=== PATIENT | female | born 1970 | race Caucasian/White ===

== ENCOUNTER → 2023-12-02 07:17 | Outpatient (REF) | payer BC, SELFPAY ==
[2023-12-02 10:03] LABS: % Basophils 2.6 % (0-2); % Eosinophils 3.3 % (0-6); % Immature Granulocytes 0.2 % (0-0.5); % Lymphocytes 42.8 % (20.5-51.1); % Monocytes 9.9 % (1.7-9.3); % Neutrophils 41.2 % (42.2-75.2); Absolute Basophils 0.1 10^3/uL (0-0.2); Absolute Eosinophils 0.1 10^3/uL (0-0.7); Absolute Lymphocytes 1.8 10^3/uL (1.2-3.4); Absolute Monocytes 0.4 10^3/uL (0.1-0.6); Absolute Neutrophils 1.8 10^3/uL (1.4-6.5); Hemoglobin 14.7 g/dL (12.0-16.0); Mean Corp Hgb Conc. 33.4 g/dL (33.0-37.0); Mean Corpuscular Hgb 29.1 pg (27.0-31.0); Mean Platelet Volume 10.5 fL (7.4-10.4); Nucleated Red Blood Cells % 0 %; Platelet Count 294 10^3/uL (130-400); Red Blood Cell Count 5.06 10^6/uL (4.20-5.40); Red Cell Dist. Width 13.2 % (11.5-14.5); White Blood Cell Count 4.3 10^3/uL (4.8-10.8)
[2023-12-02 10:33] LABS: Urine Albumin Trace (Neg - Trace); Urine Bilirubin 1+ (Negative); Urine Character Very Cloudy (Clear); Urine Color Yellow; Urine Glucose Negative (Negative); Urine Ketone Trace (Negative); Urine Leukocyte Trace (Negative); Urine Nitrite Negative (Negative); Urine Occult Blood 3+ (Negative); Urine Urobilinogen Negative (Neg - 1+)
[2023-12-02 10:49] LABS: ALT (SGPT) 18 U/L (0-35); AST (SGOT) 28 U/L (14-36); Albumin 4.5 g/dl (3.5-5.0); Alkaline Phosphatase 67 U/L (38-126); Blood Urea Nitrogen 18 mg/dl (7-17); Calcium 9.4 mg/dl (8.4-10.2); Carbon Dioxide 26 mmol/L (22-30); Chloride 106 mmol/L (98-107); Creatine Phosphokinase 44 U/L (30-135); Glucose 86 mg/dl (70-99); HDL Cholesterol 63 mg/dl; LDL Cholesterol, Calculated 86 mg/dl; Magnesium 2.1 mg/dl (1.6-2.3); Phosphorus 4.5 mg/dl (2.5-4.5); Potassium 4.1 mmol/L (3.5-5.1); Sodium 139 mmol/L (135-145); Total Bilirubin 0.8 mg/dl (0.2-1.3); Total Cholesterol 163 mg/dl (50-199); Total Protein 7.3 g/dl (6.3-8.2); Triglyceride 73 mg/dl (10-149); Uric Acid 4.6 mg/dl (2.5-6.2); Very Low Density Lipoprotein 14 mg/dl (0-30); eGFR > 60.00
[2023-12-02 10:59] LABS: Free T4 1.26 ng/dl (0.78-2.19)
[2023-12-02 11:13] LABS: TSH 1.06 uIU/ml (0.47-4.68)
[2023-12-02 11:37] LABS: Urine Mucus Few; Urine Squamous Cell >30 /LPF (Few)
[2023-12-02 11:39] LABS: Urine Amorphous Seen
[2023-12-02 11:40] LABS: Urine Red Blood Cell 21-25 /HPF (0-2); Urine White Cell 0-2 /HPF (0-5)
[2023-12-02 11:41] LABS: Urine Bacteria Few (Negative)
[2023-12-02 11:49] LABS: Erythrocyte Sed Rate 7 mm/hour (0-20)
[2023-12-04 02:40] LABS: ANA, IgG Reflex to HEp-2 None Detected (None Detected)
== END ==
LOC: HWLAB 07:17
PROVIDERS: ATTENDING PHYSICIAN Family Medicine
DX: Z00.00 Encounter for general adult medical examination without abnormal findings (principal); F41.9 Anxiety disorder, unspecified; R01.1 Cardiac murmur, unspecified
CPT/HCPCS: 36415; 80053; 80061; 81003; 81015; 82550; 83735; 84100; 84439; 84443; 84550; 85025; 85652; 86038

== ENCOUNTER → 2023-12-12 14:48 | Outpatient (REF) | payer BC, SELFPAY ==
[2023-12-12 19:33] LABS: Urine Albumin Negative (Neg - Trace); Urine Bilirubin Negative (Negative); Urine Character Clear (Clear); Urine Color Yellow; Urine Glucose Negative (Negative); Urine Ketone Negative (Negative); Urine Leukocyte Trace (Negative); Urine Nitrite Negative (Negative); Urine Occult Blood Negative (Negative); Urine Specific Gravity 1.015 (<1.030); Urine Urobilinogen Negative (Neg - 1+); Urine pH 6.5 (5.0-9.0)
[2023-12-12 19:45] LABS: Urine Red Blood Cell None Seen /HPF (0-2); Urine Squamous Cell >30 /LPF (Few); Urine White Cell 0-2 /HPF (0-5)
== END ==
LOC: CLAB 14:48
PROVIDERS: ATTENDING PHYSICIAN Family Medicine
DX: R35.0 Frequency of micturition (principal)
CPT/HCPCS: 81003; 81015; 87086

== ENCOUNTER → 2023-12-15 10:05 | Outpatient (REF) | payer BC, SELFPAY | LOC: RAD 10:05 | PROVIDERS: ATTENDING PHYSICIAN Family Medicine | DX: R10.9 Unspecified abdominal pain (principal) | CPT/HCPCS: 74246; 74248 ==

== ENCOUNTER 2024-09-05 19:52 | Emergency (ER) | payer BC, SELFPAY ==
[2024-09-05 19:52] VITALS: BMI 22.8
[2024-09-05 19:53] VITALS: BP 133/68
--- NOTE | 2024-09-05 20:46 | ED.SKININJ ---
HPI-Injury
General
Chief Complaint: Bite
Source: patient
Exam Limitations: none
Time Seen by Provider: 09/05/24 20:05
Nursing documentation reviewed up to this point in time: agreed with
History of Present Illness-Injury
Is this injury a work related problem?: No
Is pt an associate of [facility]?: No
Initial Injury comments:
Patient to ED for eval of dog bite to right forearm Dog is UTD with rabies series. 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
Past History
Past History
ED Past Medical History: Other (Migraines. Back pain) and Other (Sarcoid)
ED Past Surgical History: Gynecological, Orthopedic and Other ([place] teeth)
Social History
Tobacco: Non-smoker
Alcohol: None
Drug: None
Living: with family
Review of Systems
Review of Systems
Allergies reviewed?: Yes
Constitutional: Reports no symptoms
Musculoskeletal: Reports no symptoms
Skin: Reports other (dog bite right forearm)
Neurological: Reports no symptoms
Psychiatric: Reports no symptoms
Skin Exam
Bite
Right forearm:
Type: animal
Skin has: full thickness laceration
Laceration length in cm: 3
Surrounding area around bite has: no evidence of erythema
Distal skin color and temperature: normal-warm & good color
Normal distal neurovascular exam: Yes
Phy Exam
General Physical Exam
General Presentation: well appearing and no apparent distress
General age: appears stated age
General Skin: warm and dry
General Habitus: normal
Musculoskeletal Exam
Musculoskeletal Exam: full ROM and neuro vasc intact
Skin Exam
Skin Exam: normal color, warm/dry and no rash
Psychiatric Exam
Psychiatric Exam: normal mood/affect
Course
Orders/Labs/Results
Orders:
Orders
09/05/24 20:43
Amoxicillin 875 mg/Clav 125 mg [Augmentin 875 mg/125 mg] 1 tablet PO NOW STA
Tetanus/Diphth/Acelpertussis [Adacel] 0.5 ml IM .ONCE ONE
Vital Signs
Initial and Last Documented VS:
Initial Vital Signs
Temp Pulse Resp BP Pulse Ox
98.2 F 71 16 133/68 99
09/05/24 19:53 09/05/24 19:53 09/05/24 19:53 09/05/24 19:53 09/05/24 19:53
Last Documented Vital Signs
Temp Pulse Resp BP Pulse Ox
98.2 F 71 16 133/68 99
09/05/24 19:53 09/05/24 19:53 09/05/24 19:53 09/05/24 19:53 09/05/24 19:53
Procedures
Laceration Closure
Right forearm:
Status of Wound: clean
Size of Wound in cm: 3
Description of Wound Edges: sharp
Preparation: cleaned with saline
Anesthesia: 1% Lidocaine with epi
Revision/Debridement: routine- no revision
Wound exploration: explored to base- no FB
Type of Closure: single layer closure
Skin Closure Material: 5-0 prolene
*Critical Care Note
Total Time (30-74mins, 75-104mins- exclusive of procedures): Not Applicable
ED Attending Note
-
Portions of this chart may have been created with voice recognition software.� Occasional wrong word or��sound alike� substitutions may have occurred due to the inherent limitations of voice recognition software.
Discharge Plan
Departure
Patient Disposition: Home (Routine Discharge)
Date of Disposition: 09/05/24
Time of Disposition: 20:44
Patient with high blood pressure during this ER visit?: No
Condition: Good
Covid-19: Not Applicable
Discharge Problem:
Dog bite of arm
Instructions: Animal Bites (DC), Laceration Repair With Stitches (DC)
Prescriptions:
New
amoxicillin-pot clavulanate 875-125 mg tablet
1 tab PO BID Qty: 14 0RF
No Action
Multi-Vitamins
1 tab PO DAILY
Symbicort 160/4.5 Mcg Inhaler:
1 puff inhalation BID
ProAIR HFA INHALER:
PRN (Reason: sob)
polyethylene glycol 3350 17 GRAMS powder in packet
17 grams PO DAILY Qty: 10 0RF
docusate sodium [Colace] 100 MG capsule
100 mg PO BID Qty: 20 0RF
hydrocodone-acetaminophen 1 TABLET tablet
1 tab PO Q4HPRN PRN (Reason: pain) Qty: 18 0RF
fluconazole 200 MG tablet
200 mg PO DAILY Qty: 9 0RF
nystatin 100,000 UNITS/ML suspension
5 ml PO QID Qty: 150 0RF
Rx Instructions:
5 CC SWISH AND SWALLOW QID
Activity Restrictions/Additional Instructions:
Sutures can be removed in 7-10 days by your healthcare provider
Interventions
Interventions:
*Risk Screen - Suicide Last Done: 09/05/24 19:53
*General Assessment Last Done: 09/05/24 19:53
*Neglect/Abuse Screening Last Done: 09/05/24 19:53
*ED COVID-19 Vaccine History Last Done: 09/05/24 20:46
ED-Skin Assessment Last Done: 09/05/24 20:44
Discharge Date and Time
Print Language: MALAY
[2024-09-05] MEDS: AUGMENTIN 875 MG/125 MG 1 TABLET PO (20:54)
[2024-09-05] MEDS: ADACEL 0.5 ML IM (20:55)
[2024-09-05 21:12] VITALS: BP 128/70
== END 2024-09-05 21:30 | disposition home or self-care (01) ==
LOC: EMR 19:52
PROVIDERS: EMERGENCY PHYSICIAN Emergency Medicine; FAMILY PHYSICIAN Family Medicine
DX: S51.851A Open bite of right forearm, initial encounter (principal); W54.0XXA Bitten by dog, initial encounter; Z23 Encounter for immunization
CPT/HCPCS: 99282; 12002; 90471; 90715

== ENCOUNTER → 2025-02-13 09:29 | Outpatient (REF) | payer BC, SELFPAY ==
[2025-02-13 10:48] LABS: % Basophils 1.9 % (0-2); % Eosinophils 2.3 % (0-6); % Immature Granulocytes 0.2 % (0-0.5); % Lymphocytes 35.5 % (20.5-51.1); % Monocytes 7.7 % (1.7-9.3); % Neutrophils 52.4 % (42.2-75.2); Absolute Basophils 0.1 10^3/uL (0-0.2); Absolute Eosinophils 0.1 10^3/uL (0-0.7); Absolute Lymphocytes 1.9 10^3/uL (1.2-3.4); Absolute Monocytes 0.4 10^3/uL (0.1-0.6); Absolute Neutrophils 2.7 10^3/uL (1.4-6.5); Hematocrit 46.7 % (37.0-47.0); Hemoglobin 15.3 g/dL (12.0-16.0); Mean Corp Hgb Conc. 32.8 g/dL (33.0-37.0); Mean Corpuscular Hgb 29.4 pg (27.0-31.0); Mean Corpuscular Volume 89.6 fL (81.0-99.0); Mean Platelet Volume 9.9 fL (7.4-10.4); Nucleated Red Blood Cells % 0 %; Platelet Count 292 10^3/uL (130-400); Red Blood Cell Count 5.21 10^6/uL (4.20-5.40); Red Cell Dist. Width 13.2 % (11.5-14.5); White Blood Cell Count 5.2 10^3/uL (4.8-10.8)
[2025-02-13 10:54] LABS: Urine Albumin 1+ (Neg - Trace); Urine Bilirubin Negative (Negative); Urine Character Clear (Clear); Urine Color Yellow; Urine Glucose Negative (Negative); Urine Ketone Negative (Negative); Urine Leukocyte Negative (Negative); Urine Nitrite Negative (Negative); Urine Occult Blood Negative (Negative); Urine Urobilinogen Negative (Neg - 1+)
[2025-02-13 11:22] LABS: Urine Squamous Cell >30 /LPF (Few)
[2025-02-13 11:23] LABS: Urine Bacteria Few (Negative); Urine Red Blood Cell 0-2 /HPF (0-2)
[2025-02-13 11:35] LABS: ALT (SGPT) 31 U/L (0-35); AST (SGOT) 28 U/L (14-36); Albumin 4.6 g/dl (3.5-5.0); Alkaline Phosphatase 64 U/L (38-126); Blood Urea Nitrogen 18 mg/dl (7-17); Calcium 9.9 mg/dl (8.4-10.2); Carbon Dioxide 34 mmol/L (22-30); Chloride 102 mmol/L (98-107); Creatine Phosphokinase 43 U/L (30-135); Glucose 76 mg/dl (70-99); HDL Cholesterol 98 mg/dl; LDL Cholesterol, Calculated 86 mg/dl; Magnesium 2.3 mg/dl (1.6-2.3); Phosphorus 4.2 mg/dl (2.5-4.5); Potassium 4.5 mmol/L (3.5-5.1); Sodium 144 mmol/L (135-145); Total Bilirubin 0.9 mg/dl (0.2-1.3); Total Cholesterol 196 mg/dl (50-199); Total Protein 7.5 g/dl (6.3-8.2); Triglyceride 61 mg/dl (10-149); Uric Acid 4.3 mg/dl (2.5-6.2); Very Low Density Lipoprotein 12 mg/dl (0-30); eGFR > 60.00
[2025-02-13 11:50] LABS: Free T4 1.15 ng/dl (0.78-2.19); Vitamin D, 25-OH*** 49.5 ng/mL (30-80)
[2025-02-13 12:03] LABS: TSH 1.15 uIU/ml (0.47-4.68)
[2025-02-13 12:38] LABS: Folate 4.3 ng/ml (2.76-20); Vitamin B12 319 pg/ml (239-931)
== END ==
LOC: REG 09:29
PROVIDERS: ATTENDING PHYSICIAN Nurse Practitioner Adult Health; FAMILY PHYSICIAN Family Medicine
DX: Z00.00 Encounter for general adult medical examination without abnormal findings (principal); E07.9 Disorder of thyroid, unspecified; E78.9 Disorder of lipoprotein metabolism, unspecified; E56.9 Vitamin deficiency, unspecified; E66.01 Morbid (severe) obesity due to excess calories; Z98.84 Bariatric surgery status; R73.03 Prediabetes; E53.8 Deficiency of other specified B group vitamins
CPT/HCPCS: 36415; 80053; 80061; 81003; 81015; 82306; 82550; 82607; 82746; 83036; 83735; 84100; 84439; 84443; 84550; 84590; 85025

== ENCOUNTER → 2025-06-25 07:08 | Outpatient (REF) | payer BC, SELFPAY | LOC: RSP 07:08 | PROVIDERS: ATTENDING PHYSICIAN Internal Medicine Pulmonary Disease; FAMILY PHYSICIAN Family Medicine | DX: D86.9 Sarcoidosis, unspecified (principal) | CPT/HCPCS: 88738; 94010; 94727; 94729 ==